=== PATIENT | male | born 1965 | race Caucasian/White ===

== ENCOUNTER 2023-07-09 08:05 | Outpatient (REF) | payer BC, SELFPAY ==
[2023-07-09 10:30] LABS: Anion Gap 16 (12-20); Blood Urea Nitrogen 18 mg/dL (9-16); Carbon Dioxide 27 mmol/L (22-29); Chloride 104 mmol/L (96-108); Estimated Glomerular Filt Rate > 60; Glucose Random 99 mg/dL (60-115); Potassium 4.5 mmol/L (3.3-5.1); Sodium 142 mmol/L (135-145)
== END 2023-07-09 08:06 | disposition home or self-care (01) ==
LOC: HO.LAB 08:05
PROVIDERS: PCP Internal Medicine Geriatric Medicine; Visit Provider Internal Medicine Geriatric Medicine
DX: I10 Essential (primary) hypertension (principal)
CPT/HCPCS: 36415; 80048

== ENCOUNTER 2024-01-28 07:51 | Outpatient (REF) | payer BC, SELFPAY ==
[2024-01-28 08:03] LABS: MANUAL DIFF FLAG NO
[2024-01-28 08:10] LABS: Basophils Percent Auto 0.6 % (0-2); Eosinophils Absolute Auto 0.2 X10*3/uL (0.0-0.4); Eosinophils Percent Auto 2.5 % (0-4); Hemoglobin 16.2 g/dl (14.0-18.0); Imm Gran Abs Auto 0.02 X10*3/uL (0.00-0.03); Imm Gran Pct Auto 0.3 % (0.0-0.4); Lymphocytes Absolute Auto 1.9 X10*3/uL (1.2-4.9); Lymphocytes Percent Auto 29.9 % (20-40); Mean Corpuscular Hemoglobin 30.2 pg (27.0-33.0); Mean Corpuscular Volume 83.8 fL (80.0-98.0); Mean Platelet Volume 10.7 fL (9.4-12.4); Monocytes Absolute Auto 0.5 X10*3/uL (0.1-1.2); Monocytes Percent Auto 7.2 % (2-11); Neutrophils Absolute Auto 3.8 x10*3/uL (2.0-8.3); Neutrophils Percent Auto 59.5 % (45-73); Platelet Count 179 X10*3/uL (160-400); Red Blood Count 5.37 X10*6/uL (4.60-5.80); Red Cell Distribution Width 12.2 % (11.0-16.0); White Blood Count 6.4 X10*3/uL (4.8-10.8)
[2024-01-28 08:48] LABS: Alanine Aminotransferase 31 U/L (0-40); Albumin Level 4.8 g/dL (3.5-5.0); Alkaline Phosphatase 57 U/L (39-117); Anion Gap 11 (12-20); Aspartate Amino Transferase 22 U/L (5-37); Bilirubin Total 0.6 mg/dL (0.0-1.0); Blood Urea Nitrogen 16 mg/dL (9-16); Calcium 10.6 mg/dL (8.4-10.2); Carbon Dioxide 28 mmol/L (22-29); Chloride 105 mmol/L (96-108); Cholesterol 228 mg/dL (<200); Estimated Glomerular Filt Rate > 60; Glucose Random 110 mg/dL (60-115); HDL Cholesterol 52 mg/dL (>40); LDL Cholesterol Calculated 158 mg/dL (<100); Potassium 4.1 mmol/L (3.3-5.1); Sodium 140 mmol/L (135-145); Total Protein 8.1 g/dL (6.5-8.0); Triglycerides 94 mg/dL (<150)
== END 2024-01-28 07:52 | disposition home or self-care (01) ==
LOC: HO.LAB 07:51
PROVIDERS: PCP Internal Medicine Geriatric Medicine; Visit Provider Internal Medicine Geriatric Medicine
DX: I10 Essential (primary) hypertension (principal)
CPT/HCPCS: 36415; 80053; 80061; 85025

== ENCOUNTER 2024-05-25 08:31 | Outpatient (REF) | payer BC, SELFPAY ==
[2024-05-25 11:52] LABS: Alanine Aminotransferase 46 U/L (0-40); Albumin Level 4.8 g/dL (3.5-5.0); Alkaline Phosphatase 61 U/L (39-117); Anion Gap 10 (12-20); Aspartate Amino Transferase 26 U/L (5-37); Blood Urea Nitrogen 18 mg/dL (9-16); Calcium 9.9 mg/dL (8.4-10.2); Carbon Dioxide 30 mmol/L (22-29); Chloride 105 mmol/L (96-108); Cholesterol 155 mg/dL (<200); Estimated Glomerular Filt Rate > 60; Glucose Random 107 mg/dL (60-115); HDL Cholesterol 46 mg/dL (>40); LDL Cholesterol Calculated 91 mg/dL (<100); Potassium 4.2 mmol/L (3.3-5.1); Sodium 141 mmol/L (135-145); Total Protein 8.1 g/dL (6.5-8.0); Triglycerides 90 mg/dL (<150)
== END 2024-05-25 08:32 | disposition home or self-care (01) ==
LOC: HO.HHCL 08:31
PROVIDERS: Visit Provider Internal Medicine Geriatric Medicine
DX: I10 Essential (primary) hypertension (principal); E78.00 Pure hypercholesterolemia, unspecified
CPT/HCPCS: 36415; 80053; 80061

== ENCOUNTER 2024-10-27 07:34 | Outpatient (REF) | payer BC, SELFPAY ==
--- OUTSIDE RECORDS SUMMARY | 2024-10-27 07:36 | XMS_ITS | Encounter Summary ---
Author Organization [employer] Address [address] [place] [address] Care Team Providers Care Backup Administrator Name Role Phone Name, Eldon BOLES Primary Care Provider [phone] Encounter Details Date Type Department Care Team ([facility] st Contact Info) Description 10/26/2024 Telephone [facility] MEDICINE [address] [place] [address] Name, MD Eldon [address] [place], [place] [phone] Social History Tobacco Use Types Packs/Day Years Used Date Smoking Tobacco: Never Smokeless Tobacco: Never Alcohol Use Standard Drinks/Week Comments Never 0 (1 standard drink = 0.6 oz pur e alcohol) Alcohol Answer Date Recorded Frequency of Alcohol Consumption Not on file 01/25/2024 Average Number of Drinks Not on file 024 Frequency of Binge Drinking Not on file 01/11 Score 0 01/25/2024 Depression Answer Date Recorded Patient Health Questionnaire-9 Score 0 10/17/2023 Patient Health Questionnaire-9 Score 0 10/17/2023 Last PHQ-9: Questionnaire Data Not on file 0 10/17/2023 Housing Stability Answer Date Recorded What is your housing situation today? I have lola reynoso 10/17/[address] you li ve. Do you have problems with any of the following? None of the above 10/17/2023 Food Insecurity Answer Date Recorded Within the past 12 months, y ou worried that your food would run out before you got money to buy more: Never True 10/17/2023 Within the past 12 months,th e food you bought just didn't last and you didn't have enough money to get more: Never True 11/2023 Transportation Answer Date Recorded In the past 12 months, has l ack of transportation kept you from medical appts, meetings, work or from getting things needed for daily living? No 10/17/2023 Utilities Answer Date Recorded In the past 12 months, has t he electric, gas, oil or water company threatened to shut off services in your home? No 10/17/2023 Depression Answer Date Recorded Patient Health Questionnaire-2 Score 0 10/17/2023 Sex and Gender Information Value Date Recorded Sex Assigned at Male 04/12/2022 10:29 AM EDT Legal Sex Male 10:29 AM EDT Gender Identity Male 04/12/2022 10:29 AM EDT Sexual Orientation Straight 04/12/2022 10 :29 AM EDT documented as of this encounter Miscellaneous Notes * Telephone Encounter - Diogo Baker - 10/26/2024 12:22 PM EDT Pt returning call . Wants a return call after 3:30pm as he is currently at work * Telephone Encounter - Alona Rees RN - 10/26/2024 9:52 AM EDT TC placed to pt to pt via S gore cutter ([facility] ID#[id number]) to inform of below PCP message. No answer, LVM to call office back and ask to speak to the [place] team nurses. Eldon Ca MD at 10/25/2024 3:30 PM Status: Signed BP is good. Continue current medications documented in this encounter Plan of Treatment Not on file documented as of this encounter Visit Diagnoses Not on filedocumented in this encounter Additional Health Concerns Assessment Noted Time PHQ-9 Depression Total Score: 0 10/17/19 24 2:28 PM EDT documented as of this encounter Care Teams Backup Administrator Relationship Specialty Start Date End Date Name, MD Eldon [address] [place] [id number] PCP - General Internal Medicine 06/01/22 documented as of this encounter
--- OUTSIDE RECORDS SUMMARY | 2024-10-27 07:36 | XMS_ITS | Encounter Summary ---
Author Organization [employer] Address [address] [facility] 7[address] [place] [address] Care Team Providers Care Clay Caster Name Role Phone Name, Eldon BOLES Primary Care Provider [phone] Encounter Details Date Type Department Care Team (Latest Contact Info) Description 10/25/2024 Travel Social History Tobacco Use Types Packs/Day Years [...] AM EDT documented as of this encounter Plan of Treatment Not on file documented as of this encounter Visit Diagnoses Not on filedocumented in this encounter Additional Health Concerns Assessment Noted Time PHQ-9 Depression Total Score: 0 10/17/19 24 2:28 PM EDT documented as of this encounter Care Teams Clay Caster Relationship Specialty Start Date End Date Name, MD Eldon [address] [place] [address] PCP - General Internal Medicine 06/01/22 documented as of this encounter
--- OUTSIDE RECORDS SUMMARY | 2024-10-27 07:36 | XMS_ITS | Encounter Summary ---
Author Organization [employer] Address [address] [facility] 7[address] [place] [address] Care Team Providers Care Production Control Coordinator Name Role Phone Name, Eldon BOLES Primary Care Provider [phone] Reason for Visit * Reason Comments Blood Pressure Check Encounter Details Date Type Department Care Team ([facility] st Contact Info) Description 10/25/2024 3:30 PM EDT Telemedicine [facility] MEDICINE [address] [place], [place] [phone] Isha Lucas RN [address] [place], [place] [phone] Hypertension, unspecified type Social History Tobacco Use Types Packs/Day Years [...] AM EDT documented as of this encounter Progress Notes * Isha Lucas RN - 10/25/2024 3:30 PM EDT S: T/C to pt via [facility] Echocardi[facility] Nora #[id number] for televisit for BP Check. Pt denies headache, chestpain, sob, dizziness and visual changes today. Pt states that he does not smoke or drink alcohol. Reports that he has started walking for an hour or two 2 times per week when he gets out of work. States that he eats food including rice, beans, salad and chicken. States his does not cook with salt. O: Pt currently rx amlodipine 5 mg po daily and atorvastatin 20 mg po daily. Pt states he is takingmedications as rx and started taking his medications around October 14. A: Pt reports the following home BP readings since last office visit: 151/92; 142/91; 149/96; 149/77; 156/84; 145/91; 165/94; 150/86; 168/88; 153/88; 159/83; 131/77; 142/79; 133/77; 142/76; 137/78; 131/81; 134/81; 138/75; 133/78; 127/77; 137/74 P: Pt advised to take medications as rx. Pt encouraged to adhere to low sodium diet. Pt encouraged to increase amount and frequency of exercise. Reminded pt to have ordered labs drawn. Advised note will be sent to pcp for review. * Eldon Ca MD - 10/25/2024 3:30 PM EDT BP is good. Continue current medications documented in this encounter Plan of Treatment Not on file documented as of this encounter Visit Diagnoses Diagnosis Hypertension, unspecified type documented in this encounter Additional Health Concerns Assessment Noted Time PHQ-9 Depression Total Score: 0 10/17/19 24 2:28 PM EDT documented as of this encounter Care Teams Production Control Coordinator Relationship Specialty Start Date End Date Eldon Ca MD [address] [place] [address] PCP - General Internal Medicine 06/01/22 documented as of this encounter
--- OUTSIDE RECORDS SUMMARY | 2024-10-27 07:36 | XMS_ITS | Encounter Summary ---
Author Organization [facility] Address [address] [place] [address] Care Team Providers Care Strategic Planning Consultant Name Role Phone Name, Eldon BOLES Primary Care Provider Unavailabl e Name, Eldon BOLES Primary Care Provider Unavailabl e Encounter Details Date Type Department Care Team Description 12/25/2014 Telephone Physiatry - [place] [address] [place] [address] Chay Pastor DO Social History Tobacco Use Types Packs/Day Years Used Date Smoking Tobacco: Never Smokeless Tobacco: Never Alcohol Use Standard Drinks/Week Comments No 0 (1 standard drink = 0.6 oz pur e alcohol) Sex Assigned at Date Recorded Not on file Job Start Date Occupation Industry Not on file Not on file Not on file documented as of this encounter Plan of Treatment Not on file documented as of this encounter Visit Diagnoses Not on filedocumented in this encounter Care Teams Strategic Planning Consultant Relationship Specialty Start Date End Date Eldon Ca MD PCP - General 04/13/10 06/22/15 Eldon Ca MD PCP - General Internal Medicine 06/23/15 documented as of this encounter
--- OUTSIDE RECORDS SUMMARY | 2024-10-27 07:36 | XMS_ITS | Encounter Summary ---
Author Organization [facility] Address [address] [place] [address] Care Team Providers Care Cook Helper Dessert Name Role Phone Name, Eldon BOLES Primary Care Provider Unavailabl e Encounter Details Date Type Department Care Team Description 09/29/2015 Station Installer Report Medical Records [address] [place] [address] Diogo Rees MD Social History Tobacco Use Types Packs/Day Years [...] on filedocumented in this encounter Care Teams Cook Helper Dessert Relationship Specialty Start Date End Date Name, MD Eldon PCP - General Internal Medicine 06/23/15 documented as of this encounter
--- OUTSIDE RECORDS SUMMARY | 2024-10-27 07:36 | XMS_ITS | Encounter Summary ---
Author Organization [employer] Address [address] [facility] 7t [place] [address] Care Team Providers Care Tariff Compiler Name Role Phone Name, Eldon BOLES Primary Care Provider [phone] Encounter Details Date Type Department Care Team ([facility] st Contact Info) Description 11/01/2022 Abstract [facility] MEDICINE [address] [place] [address] Name, MD Eldon [address] [place] [address] Social History Tobacco Use Types Packs/Day Years Used Date Smoking Tobacco: Never Smokeless Tobacco: Never Depression Answer Date Recorded Patient Health Questionnaire-2 Score 0 06/30/2022 Sex and Gender Information Value Date Recorded Sex Assigned at Male 04/12/2022 10:29 AM EDT Legal Sex Male 10:29 AM EDT Gender Identity Male 04/12/2022 10:29 AM EDT Sexual Orientation Straight 04/12/2022 10 :29 AM EDT documented as of this encounter Plan of Treatment Not on file documented as of this encounter Visit Diagnoses Not on filedocumented in this encounter Care Teams Tariff Compiler Relationship Specialty Start Date End Date Name, MD Eldon [address] [place] [address] PCP - General Internal Medicine 06/01/22 documented as of this encounter
--- OUTSIDE RECORDS SUMMARY | 2024-10-27 07:36 | XMS_ITS | Clinical Summary ---
Author Organization [employer] Address [address] [facility] 7[address] [place] [address] Care Team Providers Care Weatherization Operations Manager Name Role Phone Name, Eldon BOLES Primary Care Provider [phone] Allergies Active Allergy Reactions Criticality Noted Date Comments Naproxen Sodium 06/30/2022 Medications atorvastatin (Lipitor) 20 MG tablet Take 1 tablet (20 mg) by mouth Once per day. 30 tablet 10/10/19 25 026 Active amLODIPine (Norvasc) 5 MG tablet Take 1 tablet (5 mg) by mouth Once per day. 30 tablet 10/11/19 25 026 Active amLODIPine (Norvasc) 2.5 MG tablet Take 2 tablets (5 mg) by mouth Once per day. 60 tablet 01/25/20 24 025 Discontinued(Re order (will not trigger notification to Pharmacy)) atorvastatin (Lipitor) 20 MG tablet Take 1 tablet (20 mg) by mouth Once per day. 30 tablet 01/31/20 24 025 Discontinued(Re order (will not trigger notification to Pharmacy)) amLODIPine (Norvasc) 2.5 MG tablet Take 2 tablets (5 mg) by mouth Once per day. 60 tablet 10/10/19 25 025 Discontinued Active Problems Problem Noted Date Diagnosed Date Glaucoma 06/30/2022 History of colonoscopy 06/30/2022 Overview (06/30/2022): Normal 2016 Hypertensive disorder 11/12/2016 Hypercholesterolemia 11/12/2016 Constipation 2016 Chronic low back pain 2016 Lumbosacral spondylosis without myelopathy 03/18 Lumbago 03/18/2014 Resolved Problems Problem Noted Date Diagnosed Date Resolved Date Hyperparathyroidism 12/19/2014 01/25/20 Hypercalcemia 06/28/2014 01/25/2024 Encounters Date Type Department Care Team Description 10/26/[address] [facility] MEDICINE [address] [place] [phone] Eldon Ca MD 10/25/2024 3:30 PM EDT Telemedicine [facility] MEDICINE [address] [place] [address] Isha Lucas, FEDE Hypertension, unspecified type 10/25/2024 Travel 10/09/2024 3:30 PM EDT Office Visit [address] [address] Eldon Ca MD Hypertension, unspecified type (Primary Dx); Hypercholesterolemia; Encounter for immunization 10/09/[address] [address] Eldon Ca MD 10/09/2024 Travel 10/08/[address] [address] Eldon Ca MD Chart Prep 09/04/[address] [phone] Eldon Ca MD provider sick from Last 3 Months Immunizations Immunization Administration Dates Next Due Influenza injectable quadriv alent IIV4 with preservative 03/01/2023,05/10/2018,03/16/2017,2015 Influenza injectable quadriv alent preservative free 06/28/2023,04/01/2022,05/06/2021 Influenza, IIV3, injectable 06/28/2014, 4 Influenza, seasonal, injecta ble, preservative free 05/01/2024 Flaca SARS-CoV-2 Vaccination 09/03/2020 Pfizer Covid-19 Vaccine 12+ 05/01/2024, Pfizer Covid-19 Vaccine 12+ Bivalent 04/01/2022 Pneumococcal Conjugate PCV 20 10/09/2024 Tdap 06/28/2023,06/28/2013 Social History Tobacco Use Types Packs/Day Years Used Date Smoking Tobacco: Never Smokeless Tobacco: Never Tobacco Cessation:Counseling Given: Not Answered Alcohol Use Standard Drinks/Week Comments Never 0 [...] Orientation Straight 04/12/2022 10 :29 AM EDT Last Filed Vital Signs Vital Sign Reading Time Taken Comments Blood Pressure 148/89 10/09/2024 4:22 PM EDT Pulse 80 10/09/2024 3:34 PM EDT Temperature 37.1 ??C (98.7 ??F) 10/09/2024 3:34 PM ED T Respiratory Rate 16 10/09/2024 3:34 PM EDT Oxygen Saturation 99% 10/09/2024 3:34 PM EDT Inhaled Oxygen Concentration - - Weight 88.6 kg (195 lb 6.4 oz) 10/09/2024 3:34 P M EDT Height 167.6 cm (5' 6 ) 10/09/2024 3:34 PM EDT Body Mass Index 31.54 10/09/2024 3:34 PM EDT Plan of Treatment Health Maintenance Due Date Last Done Comments CT Colonography 1967 FIT DNA/Cologuard 1967 FIT 1967 FOBT 1967 HIV Screening 1967 Sigmoidoscopy 1967 Hepatitis C Screening 1985 Hepatitis B Vaccines (1 of 3 - 19+ 3-dose series) 1986 Zoster Vaccines (1 of 2) 2017 Depression Screening 10/16/2024 10/17/2023, 10/17/19 24 SDOH Screening 10/16/2024 10/17/2023 Alcohol/Substance Use Screening 01/24/2025 01/25/2024 Tobacco Screening 10/09/2025 10/09/2024 Colonoscopy 02/04/2026 02/05/2016 Colorectal Cancer Screening 02/04/2026 Lipid Panel 05/25/2029 05/25/2024, 0812/2023, 06/30/2022 DTaP/Tdap/Td Vaccines (3 - Td or Tdap) 06/28/2033 06/28/2023, 06/28/2013 RSV Patients and Patients Aged 60 years or older (1 - 1-dose 75+ series) 2042 COVID-19 Vaccine Completed 05/01/2024, , 05/06/2021, Additional history exists Influenza Vaccine Completed 05/01/2024, , 03/01/2023, Additional history exists Pneumococcal Vaccine: 50+ Years Completed 10/09/2024 HIB Vaccines Aged Out No longer eligi ble based on patient's age to complete this topic HPV Vaccines Aged Out No longer eligi ble based on patient's age to complete this topic Hepatitis A Vaccines Aged Out No long er eligible based on patient's age to complete this topic IPV Vaccines Aged Out No longer eligi ble based on patient's age to complete this topic Meningococcal B Vaccine Aged Out No l onger eligible based on patient's age to complete this topic Meningococcal Vaccine Aged Out No natali yuval eligible based on patient's age to complete this topic RSV under 20 months Aged Out No longe r eligible based on patient's age to complete this topic Rotavirus Vaccines Aged Out No longer eligible based on patient's age to complete this topic Procedures Procedure Name Priority Date/Time Associated Diagnosis Comments LIPID PANEL, STANDARD Routine 05/25/2024 8:33 AM EST Hypertension, unspecified type Hypercholesterolemia HM COLONOSCOPY Routine 02/05/2016 from Last 3 Months or Most Recently Relevant to Health Maintenance Results * Lipid Panel, Standard (05/25/2024 8:33 AM EST) Triglycerides 90 <150 mg/dL [facility] Comment:Desirable Triglyceri de: less than 150 mg/dLBorderline High Triglyceride 150-199 mg/dLHigh Triglyceride: 200-499 mg/dLVery High Triglyceride: greater than or equal to 5OO mg/dL Cholesterol 155 <200 mg/dL [facility] Comment:Desirable Cholestero l: less than 200 mg/dLBorderline High Cholesterol: 200-239 mg/dLHigh Cholesterol: greater than 239 mg/dL LDL Cholesterol Calculated 91 <100 mg/dL [facility] Comment:Desirable LDL: less than 100 mg/dLNear Optimal/Above Optimal LDL: 110- 129 mg/dLBorderline High LDL: 130-159 mg/dLHigh LDL: 160-189 mg/dLVery High LDL: greater than or equal to 190 mg/dL HDL Cholesterol 46 >40 mg/dL [facility] Comment:Desirable HDL: great er than 40 mg/dL Note: This HDL assay may give artificially low results in patients with liver disease. Blood Venous blood specimen / Unknown 05/25/2024 8:33 AM EST 05/25/2024 11:01 AM EST us Eldon Ca MD LAB BLOOD ORDERABLES Final Resul t [facility] [address] [place] [address] [phone] * Hm Colonoscopy (02/05/2016) Colonoscopy Normal Normal Comment:repeat in 10 yrs us Historical Provider MD HEALTH MAINTENANCE Final Result from Last 3 Months or Most Recently Relevant to Health Maintenance Insurance [employer] HMO [facility] F[facility] Care Teams Weatherization Operations Manager Relationship Specialty Start Date End Date Name, MD Eldon [address] [place] [address] PCP - General Internal Medicine 06/01/22
--- OUTSIDE RECORDS SUMMARY | 2024-10-27 07:36 | XMS_ITS | Encounter Summary ---
Author Organization [facility] Address [address] [place] [address] Care Team Providers Care Cognos Developer Name Role Phone Name, Eldon BOLES Primary Care Provider Unavailabl e Name, Eldon BOLES Primary Care Provider Unavailabl e Encounter Details Date Type Department Care Team Description 01/02/2015 Orders Only Medical Records [address] [place] [address] Abstract, Provider Social History Tobacco Use Types Packs/Day Years [...] on file documented as of this encounter Procedures Procedure Name Priority Date/Time Associated Diagnosis Comments OUTSIDE EKG Routine 09/27/2014 documented in this encounter Results * OUTSIDE EKG (09/27/2014) Provider Abstract CARDIOLOGY documented in this encounter Visit Diagnoses Not on filedocumented in this encounter Care Teams Cognos Developer Relationship Specialty Start Date End Date Name, MD Eldon PCP - General 04/13/10 06/22/15 Name, MD Eldon PCP - General Internal Medicine 06/23/15 documented as of this encounter
[2024-10-27 08:54] LABS: Alanine Aminotransferase 47 U/L (0-40); Alkaline Phosphatase 56 U/L (39-117); Anion Gap 13 (12-20); Aspartate Amino Transferase 25 U/L (5-37); Bilirubin Total 1.1 mg/dL (0.0-1.0); Blood Urea Nitrogen 18 mg/dL (9-16); Calcium 10.2 mg/dL (8.4-10.2); Carbon Dioxide 27 mmol/L (22-29); Chloride 105 mmol/L (96-108); Estimated Glomerular Filt Rate > 60; Glucose Random 110 mg/dL (60-115); Sodium 141 mmol/L (135-145); Total Protein 8.2 g/dL (6.5-8.0)
== END 2024-10-27 07:35 | disposition home or self-care (01) ==
LOC: HO.LAB 07:34
PROVIDERS: PCP Internal Medicine Geriatric Medicine; Visit Provider Internal Medicine Geriatric Medicine
DX: I10 Essential (primary) hypertension (principal); E78.00 Pure hypercholesterolemia, unspecified
CPT/HCPCS: 36415; 80053

== ENCOUNTER 2025-03-16 07:38 | Outpatient (REF) | payer BC, SELFPAY ==
--- OUTSIDE RECORDS SUMMARY | 2025-03-16 07:42 | XMS_ITS | Encounter Summary ---
Author Organization [employer] Address [address] [place] [address] Care Team Providers Care Hyperbaric Nurse Name Role Phone Name, Eldon BOLES Primary Care Provider [phone] Encounter Details Date Type Department Care Team ([facility] st Contact Info) Description 11/01/2022 Abstract [facility] MEDICINE [address] [place] [address] Name, MD Eldon [address] [place] [address] Social History Tobacco Use Types Packs/Day Years [...] on filedocumented in this encounter Care Teams Hyperbaric Nurse Relationship Specialty Start Date End Date Name, MD Eldon [address] [place] [address] PCP - General Internal Medicine 06/01/22 documented as of this encounter
--- OUTSIDE RECORDS SUMMARY | 2025-03-16 07:42 | XMS_ITS | Clinical Summary ---
Author Organization [employer] Address [address] [place] [address] Care Team Providers Care Culinary Specialist Name Role Phone Name, Eldon BOLES Primary Care Provider [phone] Allergies Active Allergy Reactions Criticality Noted Date Comments Naproxen Sodium 06/30/2022 Medications atorvastatin (Lipitor) 20 MG tablet Take 1 tablet (20 mg) by mouth Once per day. 30 tablet 11 5 10/10/19 26 Active amLODIPine (Norvasc) 5 MG tablet Take 1 tablet (5 mg) by mouth Once per day. 30 tablet 11 5 10/11/19 26 Active clotrimazole (Lotrimin) 1 % cream Apply topically 2 times daily for 28 days. 30 g 5 5 03/27/20 25 Active Active Problems Problem Noted Date Diagnosed Date Glaucoma 06/30/2022 History of colonoscopy 06/30/2022 Overview (06/30/2022): Normal 2016 Hypertensive disorder 11/12/2016 Hypercholesterolemia 11/12/2016 Constipation 2016 Chronic low back pain 2016 Lumbosacral spondylosis without myelopathy 03/18 Lumbago 03/18/2014 Resolved Problems Problem Noted Date Diagnosed Date Resolved Date Hyperparathyroidism 12/19/2014 01/25/20 24 Hypercalcemia 06/28/2014 01/25/2024 Encounters Date Type Department Care Team Description 02/28/2025 Telephone [facility] [address] [place], [place] [id number] Name, MD Eldon Appointment Request 02/27/2025 3:30 PM EDT Office Visit [facility] [address] [place] [address] Name, MD Eldon Hypertension, unspecified type (Primary Dx); Hypercholesterolemia; Screening for prostate cancer; Tinea pedis, unspecified laterality 02/27/2025 Travel 02/26/2025 Telephone [facility] [address] [place] [address] Mitzi Cuello MA chart prep from Last 3 Months Immunizations Immunization Administration [...] Date Recorded Patient Health Questionnaire-9 Score 0 02/27/2025 Patient Health Questionnaire-9 Score 0 02/27/2025 Last PHQ-9: Questionnaire Data Not on file 0 02/27/2025 Housing Stability Answer Date Recorded What is your housing situation today? I have lola reynoso 02/27/[address] you li ve. Do you have problems with any of the following? None of the above 02/27/2025 Food Insecurity Answer Date Recorded Within the past 12 months, y ou worried that your food would run out before you got money to buy more: Never True 02/27/2025 Within the past 12 months,th e food you bought just didn't last and you didn't have enough money to get more: Never True Transportation Answer Date Recorded In the past 12 months, has l ack of transportation kept you from medical appts, meetings, work or from getting things needed for daily living? No 02/27/2025 Utilities Answer Date Recorded In the past 12 months, has t he [employer], gas, oil or water company threatened to shut off services in your home? No 02/27/2025 Depression Answer Date Recorded Patient Health Questionnaire-2 Score 0 02/27/2025 Internet Access Answer Date Recorded Internet Access Q1 Yes 02/27/2025 Internet Access Q2 Not on file 02/27/2025 Sex and Gender Information Value Date Recorded Sex Assigned at Male 04/12/2022 10:29 AM EDT Legal Sex Male 10:29 AM EDT Gender Identity Male 04/12/2022 10:29 AM EDT Sexual Orientation Straight 04/12/2022 10 :29 AM EDT Last Filed Vital Signs Vital Sign Reading Time Taken Comments Blood Pressure 141/73 02/27/2025 3:45 PM EDT Pulse 91 02/27/2025 3:36 PM EDT Temperature 36.9 C (98.4 F) 02/27/2025 3:36 PM EDT Respiratory Rate 18 02/27/2025 3:36 PM EDT Oxygen Saturation 97% 02/27/2025 3:36 PM EDT Inhaled Oxygen Concentration - - Weight 83.9 kg (185 lb) 02/27/2025 3:36 PM EDT Height 167.6 cm (5' 6 ) 02/27/2025 3:36 PM EDT Body Mass Index 29.86 02/27/2025 3:36 PM EDT Plan of Treatment Health Maintenance Due Date Last Done Comments CT Colonography 1967 FIT DNA/Cologuard 1967 FIT 1967 FOBT 1967 HIV Screening 1967 Sigmoidoscopy 1967 Hepatitis C Screening 1985 Hepatitis B Vaccines (1 of 3 - 19+ 3-dose series) 1986 Zoster Vaccines (1 of 2) 2017 Influenza Vaccine (#1) 2025 , 06/28/2023, 03/01/2023, Additional history exists Colonoscopy 02/04/2026 02/05/2016 Colorectal Cancer Screening 02/04/2026 Alcohol/Substance Use Screening 02/27/2026 02/27/2025 Depression Screening 02/27/2026 02/27/2025, 02/28/20 Disability Screening 02/27/2026 02/27/2025 SDOH Screening 02/27/2026 02/27/2025 Tobacco Screening 02/27/2026 02/27/2025 Lipid Panel 05/25/2029 05/25/2024, 01/11, 06/30/2022 DTaP/Tdap/Td Vaccines (3 - Td or Tdap) 06/28/2033 06/28/2023, 06/28/2013 RSV Patients and Patients Aged 60 years or older (1 - 1-dose 75+ series) 2042 COVID-19 Vaccine Completed 05/01/2024, , 05/06/2021, Additional history exists Pneumococcal Vaccine: 50+ Years [...] 8:33 AM EST) Triglycerides 90 <150 mg/dL [facility] Comment:Desirable Triglyceri de: less than 150 mg/dLBorderline High Triglyceride 150-199 mg/dLHigh Triglyceride: 200-499 mg/dLVery High Triglyceride: greater than or equal to 5OO mg/dL Cholesterol 155 <200 mg/dL [facility] Comment:Desirable Cholestero l: less than 200 mg/dLBorderline High Cholesterol: 200-239 mg/dLHigh Cholesterol: greater than 239 mg/dL LDL Cholesterol Calculated 91 <100 mg/dL [facility] Comment:Desirable LDL: less than 100 mg/dLNear Optimal/Above Optimal LDL: 110- 129 mg/dLBorderline High LDL: 130-159 mg/dLHigh LDL: 160-189 mg/dLVery High LDL: greater than or equal to 190 mg/dL HDL Cholesterol 46 >40 mg/dL [facility] Comment:Desirable HDL: great er than 40 mg/dL Note: This HDL assay may give artificially low results in patients with liver disease. Blood Venous blood specimen / Unknown 05/25/2024 8:33 AM EST 05/25/2024 11:01 AM EST Eldon Ca MD LAB BLOOD ORDERABLES Final Resul t [facility] [address] [place] [phone] * Colonoscopy (02/05/2016) Colonoscopy Normal Normal Comment:repeat in 10 yrs us Historical Provider HEALTH MAINTENANCE Final Result from Last 3 Months or Most Recently Relevant to Health Maintenance [facility] Address: [facility] [id number] [place] [address] HSN FULL Care Teams Culinary Specialist Relationship Specialty Start Date End Date Name, MD Eldon [address] [place] [address] PCP - General Internal Medicine 06/01/22
[2025-03-16 08:40] LABS: Alanine Aminotransferase 32 U/L (0-40); Albumin Level 5.1 g/dL (3.5-5.0); Alkaline Phosphatase 59 U/L (39-117); Anion Gap 11 (12-20); Aspartate Amino Transferase 24 U/L (5-37); Blood Urea Nitrogen 23 mg/dL (9-16); Calcium 9.8 mg/dL (8.4-10.2); Carbon Dioxide 29 mmol/L (22-29); Chloride 106 mmol/L (96-108); Cholesterol 225 mg/dL (<200); Estimated Glomerular Filt Rate > 60; HDL Cholesterol 49 mg/dL (>40); Potassium 4.5 mmol/L (3.3-5.1); Sodium 141 mmol/L (135-145); Total Protein 7.9 g/dL (6.5-8.0); Triglycerides 125 mg/dL (<150)
[2025-03-16 09:07] LABS: Prostate Specific Antigen 1.99 ng/mL (<0.05-4.0)
== END 2025-03-16 07:39 | disposition home or self-care (01) ==
LOC: HO.LAB 07:38
PROVIDERS: PCP Internal Medicine Geriatric Medicine; Visit Provider Internal Medicine Geriatric Medicine
DX: Z12.5 Encounter for screening for malignant neoplasm of prostate (principal); I10 Essential (primary) hypertension; E78.00 Pure hypercholesterolemia, unspecified
CPT/HCPCS: 36415; 80053; 80061; 84153